=== PATIENT | male | born 1955 | race Caucasian/White ===

== ENCOUNTER 2018-05-30 13:07 | Inpatient (IN) | payer BC, OTHER ==
[~2018-05-30] VITALS: Ht 162.6 cm; Wt 74.6 kg
[2018-05-30] MEDS ORDERED: LASIX20 MG PO (14:58)
[2018-05-30] MEDS ORDERED: LISINOPRIL40 MG PO (14:58)
[2018-05-30] MEDS ORDERED: GLIPIZIDE5 MG PO (14:58)
[2018-05-30] MEDS ORDERED: METFORMIN HCL500 MG PO (14:58)
[2018-05-30] MEDS ORDERED: ECOTRIN81 MG PO (14:58)
[2018-05-30] MEDS ORDERED: AMLODIPINE BESYL5 MG PO (14:58)
[2018-05-30] MEDS ORDERED: MULTI-BETIC TA1 EACH PO (14:58)
[2018-05-30] MEDS ORDERED: VANCOMYCIN 1GM/NS 250 ML 250 ML IV STA (15:09)
[2018-05-30] MEDS ORDERED: PIPER-TAZ 3.375 GM 50 ML IV NR (15:09)
[2018-05-30] MEDS ORDERED: LORAZEPAM 0.5 MG TAB PO ONE (15:30)
[2018-05-30 15:36] LABS: BASOPHILS # (AUTO) 0.1 (0.0-0.1); BASOPHILS % 0.5 % (0.0-1.0); EOSINOPHILS # (AUTO) 0.3 (0.0-0.4); HEMATOCRIT 31.2 % (38.2-49.6); LYMPHOCYTES # (AUTO) 1.9 (1.0-3.2); LYMPHOCYTES % 13.9 % (18.0-39.1); MEAN CORPUSCULAR HEMOGLOBIN 29.8 pg (28-32); MEAN CORPUSCULAR HGB CONC 35.3 g/dL (31-35); MEAN CORPUSCULAR VOLUME 84.6 fL (81-99); MONOCYTES # (AUTO) 1.2 (0.2-0.8); MONOCYTES % 9.3 % (4.4-11.3); NEUTROPHILS # (AUTO) 9.8 (2.1-6.9); NEUTROPHILS % 73.7 % (38.7-80.0); PLATELET COUNT 268 x10e3/uL (140-360); RED BLOOD COUNT 3.69 x10e6/uL (4.3-5.7); RED CELL DISTRIBUTION WIDTH 12.9 % (11.7-14.4)
[2018-05-30 15:41] LABS: ALBUMIN 3.5 g/dL (3.5-5.0); ALBUMIN/GLOBULIN RATIO 0.9 (0.8-2.0); ANION GAP 16.4 mmol/L (8-16); CALCIUM 9.3 mg/dL (8.4-10.2); CREATININE, SERUM 2.09 mg/dL (0.72-1.25); MAGNESIUM 2.3 MG/DL (1.3-2.1)
[2018-05-30 15:47] LABS: POTASSIUM 5.4 mmol/L (3.5-5.1)
--- NOTE | 2018-05-30 15:54 | Diagnostic Imaging Report ---
FOOT LEFT COMPLETE - 3 views HISTORY: Pain COMPARISON: None available. FINDINGS: See impression. IMPRESSION: No acute fracture or dislocation. Chronic appearing destructive changes of the first metatarsophalangeal joint. Second toe swelling with questionable minimal erosive changes of the tip of the distal phalanx. Signed by: Dr. Low Pemberton MD on 05/30/2018 3:51 PM
[2018-05-30] MEDS ORDERED: SODIUM CHLORIDE 0.9% 1000ML 1,000 ML IV SCH (16:00)
[2018-05-30] MEDS ORDERED: INSULIN REGULAR, HUMAN 100 UNIT/1 ML 3ML VIAL IV NR (16:00)
[2018-05-30] MEDS ORDERED: INSULIN REGULAR, HUMAN 100 UNIT/1 ML 3ML VIAL ONE (16:02)
[2018-05-30] MEDS ORDERED: SODIUM CHLORIDE 0.9% 1000ML 1,000 ML ONE (16:02)
[2018-05-30] MEDS ORDERED: ONDANSETRON HCL INJ 2MG/ML 2ML 2 MG/ML VIAL IV PRN (16:15)
[2018-05-30] MEDS ORDERED: DEXTROSE 50% SYRINGE 50 ML IV PRN (16:15)
--- OUTSIDE RECORDS SUMMARY | 2018-05-30 16:19 | XMS REPORT ---
Author [facility] Address Unknown Phone Unavailable Care Team Providers Care Care Associate Name Role Phone Colleen TRAVIS Unavailable Unavailable Problems This patient has no known problems. Allergies, Adverse Reactions, Alerts This patient has no known allergies or adverse reactions. Medications This patient has no known medications. 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 FINDINGS: See impression. IMPRESSION: No acute fracture or dislocation. Chronic appearing destructive changes of the first metatarsophalangeal joint. Second toe swelling with questionable minimal erosive changes of the tip of the distal phalanx. Signed by: Dr. Low Wharton MD on 05/30/2018 3:51 PM Dictated By: LOW WHARTON MD Renee ctronically Signed By: LOW WHARTON MD on 05/30/181550 Transcribed By: JOSE on 05/30/181550 COPY TO: JAKI RAI NP
[2018-05-30] MEDS ORDERED: MORPHINE SULFATE INJ 4 MG/ML INJ 1ML IV PRN (16:30)
[2018-05-30] MEDS: VANCOMYCIN 500MG/NS 0.9% 100ML 100 ML IV SCH (16:44)
[2018-05-30] MEDS: INSULIN REGULAR, HUMAN 100 UNIT/1 ML 3ML VIAL SQ SCH ×2 (16:45→20:52)
--- NOTE | 2018-05-30 18:48 | NUR ---
PATIENT RECEIVED FROM ER PER STRETCHER. ALERT AND VERBALLY RESPONSIVE. ABLE TO TRANSFER SELF FROM STRETCHER TO BED. SKIN WARM AND DRY TO TOUCH, RESPIRATION, EVEN AND UNLABORED. REDNESS AND SWELLING NOTED TO LEFT FOOT AND MORE TO 2ND DIGIT. PATIENT ORIENTED TO SURROUNDINGS. BED IN LOWER POSITION AND LOCKED, CALL LIGHT AT EASY REACH. INSTRUCTED TO CALL FOR ASSISTANCE NEEDED.
[2018-05-30 19:00] VITALS: BP_SYST 101; BP_SYST 161; BP_DIAS 83
--- NOTE | 2018-05-30 19:00 | NUR ---
patient recieved awake, alert, lying quietly in bed. vss. no c/o pain noted. redness/swelling noted to left foot and left second toe with wound noted to left second toe. 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 admit assessment/history obtained. patient instructed to call for assistance when needed.
[2018-05-30 20:00] VITALS: BP 161/83
[2018-05-30] MEDS ORDERED: SODIUM CHLORIDE 0.9% 250ML 250 ML ONE (20:59)
[2018-05-30 21:28] VITALS: BP 161/83
[2018-05-30] MEDS ORDERED: PIPERACILLIN/TAZO 2.25 GM 50 ML IV SCH ×2 (22:00)
[2018-05-31] VITALS (7 sets, daily range): BP systolic 123–157; BP diastolic 74–82
[2018-05-31] MEDS: PIPERACILLIN/TAZO 2.25 GM 50 ML IV SCH ×4 (03:50→21:12)
[2018-05-31] MEDS: VANCOMYCIN 500MG/NS 0.9% 100ML 100 ML IV SCH ×2 (04:30→17:22)
[2018-05-31] MEDS: INSULIN REGULAR, HUMAN 100 UNIT/1 ML 3ML VIAL SQ SCH ×4 (07:30→21:00)
[2018-05-31] MEDS ORDERED: SODIUM CHLORIDE 0.9% 1000ML 1,000 ML IV ONE ×2 (08:00→19:14)
[2018-05-31] MEDS: GLIPIZIDE 5 MG TAB PO SCH (08:04)
[2018-05-31] MEDS: ASPIRIN 81 MG ENTERIC COATED PO SCH (08:04)
[2018-05-31] MEDS: METFORMIN HCL 500 MG TAB PO SCH ×3 (08:04→17:22)
--- NOTE | 2018-05-31 08:47 | History and Physical ---
CHIEF COMPLAINT: Redness and pain in the toe. HISTORY OF PRESENT ILLNESS: The patient reports swelling and pain in the left foot. The pain and swelling is worsen in the 2nd digit of the left toe. He denies any fevers. He does note polyuria and polydipsia. He denies any nausea or vomiting. He has no diarrhea. The patient came to the emergency department. He was discovered to have an elevated white blood cell count along with elevated blood sugars and increased creatinine. The patient was admitted and started on IV antibiotics. He is awaiting an MRI. PAST MEDICAL HISTORY 1. Diabetes mellitus with neuropathy. 2. Hypertension. PAST SURGICAL HISTORY: I and D of a groin infection. SOCIAL HISTORY: The patient quit smoking. He is not actively drinking. He lives in [place]. FAMILY HISTORY: The patient has diabetes and hypertension in the family. REVIEW OF SYSTEMS: The patient is afebrile. He has no headache or sore throat. He has no neck pain. He does not complain of any cough or difficulty breathing. He has no chest pain. There is no abdominal pain. He has no nausea or vomiting. He has no leg swelling. He does complain of pain and tenderness in the left foot. PHYSICAL EXAMINATION VITALS: The blood pressure 151/82 and the saturation is 98%. The pulse is 88. HEENT: Shows no facial swelling or erythema. The oropharynx is normal. The nasal mucosa is normal. LYMPHATIC: Shows no submandibular, cervical or supraclavicular adenopathy. CARDIOVASCULAR: Reveals a regular rate and rhythm with a normal S1 and S2. There are no murmurs or rubs. LUNGS: Auscultation of lungs reveals clear breath sounds bilaterally. There is no wheezing. ABDOMEN: Soft and nontender. There is no rebound or guarding. EXTREMITIES: Show swelling and pain on the dorsal aspect of the left foot, particularly on the 2nd digit. There is signs of sensory neuropathy. NEUROLOGIC: Consistent with neuropathy in the lower extremities. LABORATORY DATA: Blood sugar is 226, but was 453 in the emergency department. The sodium is 134 and the potassium is 5.4. The carbon dioxide is 21 and the BUN to creatinine ratio is 52 to 2.09. IMPRESSION: 1. Osteomyelitis of the toe and dorsal aspect of the foot with sepsis present on admission. 2. Diabetes out of control. 3. Acute kidney injury. 4. Diabetic peripheral neuropathy. 5. Hypertension. PLAN 1. Patient will receive IV fluids along with adjustment of his diabetic insulin regimen. 2. Antibiotics. 3. MRI of the foot. 4. Ultrasound of the kidneys along with urinalysis. 5. Consult nephrology along with infectious disease. Job#: [id number] RI
[2018-05-31] MEDS ORDERED: NON-FORMULARY MEDICATION (Aspirin (Ecotrin) 81 MG) PO SCH (09:00)
[2018-05-31] MEDS ORDERED: NON-FORMULARY MEDICATION (Lisinopril 40 MG) PO SCH (09:00)
[2018-05-31] MEDS ORDERED: LISINOPRIL 20 MG TAB PO SCH (09:00)
[2018-05-31] MEDS: [UNRECOGNIZED DRUG - OTHER] PO SCH (09:00)
--- NOTE | 2018-05-31 09:56 | Diagnostic Imaging Report ---
MRI of the left forefoot without contrast. History: Foot pain. Cellulitis. Osteomyelitis of the left second toe. Infected toe. Diabetes. Decreased range of motion. Technique: Multiplanar multisequence MRI of the left foot without contrast Comparison: Radiographs 05/30/2018 Findings: There is abnormal skin thickening and soft tissue edema at the distal second toe. There is underlying cortical destruction and bone marrow edema involving the distal phalanx of the second toe best seen on sagittal image 16. No well-formed drainable fluid collection/abscess is seen in the region. There is what appears to be a small developing phlegmon on the plantar surface best seen on sagittal image 15. Scattered degenerative changes are seen most pronounced at the first metatarsophalangeal joint with associated joint space loss, subchondral cystic change, peripheral osteophytosis and mild bone marrow edema. No ligamentous or tendon tear is seen. There is mild diffuse muscle atrophy. No ligamentous or tendon tear is seen. The visualized neurovascular bundles are intact. Impression: Abnormal skin thickening and soft tissue edema at the distal second toe. There is underlying cortical destruction and bone marrow edema involving the distal phalanx of the second toe consistent with osteomyelitis. No well-formed drainable fluid collection/abscess is seen in the region. There is what appears to be a developing phlegmon in the region on the plantar surface. Signed by: Dr. Harvey Aguiar M.D. on 05/31/2018 9:53 AM
[2018-05-31] MEDS ORDERED: INFLUENZA VIRUS VAC SPLIT INJ 0.5 ML SYR IM NR (11:00)
--- NOTE | 2018-05-31 11:06 | Diagnostic Imaging Report ---
Renal ultrasound. History: Elevated creatinine Comparison: None Findings: Transverse and longitudinal imaging of the kidneys and bladder. The kidneys are normal in echogenicity and size. Negative for mass, hydronephrosis, or echogenic stone. The right kidney measures 11.2 cm in length and the left kidney measures 10.6 cm in length. No bladder abnormalities identified. Bilateral ureteral jets are seen Impression: Normal renal ultrasound. Signed by: Dr. Harvey Aguiar M.D. on 05/31/2018 11:03 AM
[2018-05-31 11:07] LABS: CLARITY,URINE CLEAR (CLEAR); COLOR,URINE YELLOW (YELLOW)
[2018-05-31 11:08] LABS: BILIRUBIN,URINE NEGATIVE (NEGATIVE); EPITHELIAL CELLS,URINE RARE /LPF; KETONES,URINE NEGATIVE (NEGATIVE); LEUKOCYTE ESTERASE ,URINE NEGATIVE (NEGATIVE); NITRITE,URINE NEGATIVE (NEGATIVE); PROTEIN,URINE DIPSTICK TRACE (NEGATIVE); URINE UROBILINOGEN 0.2 mg/dL (0.2 - 1)
[2018-05-31 11:09] LABS: WBC,URINE (MAN) 0-5 /HPF (0-5)
--- NOTE | 2018-05-31 13:52 | Consultation ---
DATE OF CONSULTATION: May 31, 2018 INFECTIOUS DISEASE CONSULTATION ATTENDING PHYSICIAN: Dr. Nestor Guzman REASON FOR CONSULTATION: Cellulitis. Thank you, Dr. Angela and Dr. Guzman, for asking me to see this patient. HISTORY OF PRESENT ILLNESS: The patient is a 63-year-old man referred for cellulitis. He was admitted through the emergency department with left foot cellulitis. He presented to the emergency department on 05/30/2018 with progressive swelling and redness of the left foot. The patient was picking on a scab at the tip of the left 2nd toe for a few weeks prior. Unfortunately, he developed an ulcer, which he managed at home with Neosporin and hydrogen peroxide. Subsequently he noted progressive swelling and redness a day prior to presentation. He denies fever, chills and foot pain. In the emergency department, he was noted to have temperature 97.7 degrees Fahrenheit, pulse rate 100, respiratory rate 18, blood pressure 176/92, and oxygen saturation 99% on room air. Laboratory studies showed blood glucose 453. X-ray of the left foot showed chronic-appearing destructive changes of the 1st metatarsophalangeal joint and 2nd toe swelling with questionable minimal erosive changes at the tip of the distal phalanx. PAST MEDICAL HISTORY: Diabetes mellitus type 2, hypertension. PAST SURGICAL HISTORY: Incision and drainage of groin abscess. ALLERGIES: NO KNOWN DRUG ALLERGIES. MEDICATIONS: See MAR. The current antibiotics are Zosyn 2.25 grams IV piggyback q.6 h. and vancomycin 500 mg IV piggyback q.24 h. IMMUNIZATIONS: He has not received influenza vaccine this season. He received pneumococcal vaccination in 2018. Also, he received tetanus-diphtheria vaccine in 2018. FAMILY HISTORY: Significant for diabetes mellitus and hypertension. SOCIAL HISTORY: He never smoked. He quit drinking alcohol 5 to 6 years ago. No recreational drug use. REVIEW OF SYSTEMS: As per history of present illness. He denies fever, chills, cough, shortness breath, nausea, vomiting, diarrhea, dysuria and abdominal pain. The wound has started draining purulent material. PHYSICAL EXAMINATION GENERAL: No acute distress. VITALS: T-max 98.6, pulse rate 88, respiratory rate 20, blood pressure 151/82. Weight 163 pounds. HEENT: Normocephalic. There is no icterus or injection of conjunctivae. There is no ear or nasal discharge. Moist oral mucosa. No pharyngeal erythema or exudate. NECK: Supple. No meningismus. LUNGS: Clear to auscultation bilaterally. HEART: Normal S1 and S2. Regular. ABDOMEN: Soft and nontender. EXTREMITIES: There is edema of the left 2nd toe with an ulcer at the tip of the left 2nd toe draining scant purulent material. There is redness of the left foot as well as edema and warmth but no tenderness. The dorsalis pedis and posterior tibial pulses are palpable in both feet. There is no edema, clubbing or cyanosis of the rest of the extremities. SKIN: As per extremities. SEAL SKINNER: Awake, alert and oriented to person, place and time. There is decreased sensation to monofilament test of the feet. Nonfocal. LABORATORY AND DIAGNOSTICS: 05/30/2018 WBC 13,290, hemoglobin 11, platelets 268,000, neutrophils 73.7, lymphocytes 13.9, monocytes 9.3, eosinophils 2, basophils 0.5. BUN 52, creatinine 2.09. Blood glucose 135. Blood culture collected in the emergency room is pending. The left 2nd toe drainage culture is also pending. Left foot MRI showed abnormal skin thickening and soft-tissue edema at the distal 2nd toe and underlying cortical destruction and bone marrow edema involving the distal phalanx of the 2nd toe consistent with osteomyelitis. IMPRESSION/DIAGNOSES 1. Left foot cellulitis complicating diabetic foot ulcer with features consistent with osteomyelitis of the distal phalanx of the 2nd digit, present on admission. 2. Diabetes mellitus, type 2, with peripheral neuropathy, uncontrolled. 3. Acute kidney injury. PLAN 1. Await culture results and monitor vancomycin level closely. Await arterial Doppler ultrasound report. 2. Continue current antibiotics and administer influenza vaccination (the patient agrees). 3. Await podiatry and nephrology consults. Job#: [id number] MIGUELANGEL MCKEON
[2018-05-31] MEDS ORDERED: AMLODIPINE BESYLATE 5 MG TAB PO SCH (17:00)
--- NOTE | 2018-05-31 17:35 | NUR ---
WOUND CARE CONSULTATION - INITIAL EVALUATION Patient admitted for swelling and redness of left foot 2nd toe with DFU. Dx with cellulitis and OM of Left foot 2nd Toe, HTN, MARY, Hyperglycemia. HX: DM, Neuropathy, HTN. LABS: WBC 13.29 HGB11 HCT31.2 NEUT%73.7 TFN317 ALB3.5 IMAGING: -X Ray - 2nd Toe Joint Swelling. -MRI of Left Foot - Abnormal skin thickening and soft tissue edema at the distal second toe. There is underlying cortical destruction and bone marrow edema involving the distal phalanx of the second toe consistent with osteomyelitis WC Consulted for Left Foot Wound @ 2nd Toe - Patient out of shower walking barefooted to bed. - Patient in good spirits with spouse at bedside. - Noted ulceration at tip of 2nd toe with toe double the size of right foot 2nd digit. - Tip of toe appears friable/ dark red and upon expressing, cloudy milky white pus comes out. - Nail Bed came off upon cleansing toe with NSS and 4x4 gauze giving the toe a purple translucent appearance. - Redness from toe continues to dorsal aspect of foot. - Mild edema noted. Pedal pulses palpable bilaterally. - Wound previously cultured in ER - preliminary results in chart. Pending Final Results with Sensitivities. - Patient on IV ABX. - Left foot wound probes to bone. - Toro Score 22 - Conservative PUP Protocol IMPRESSION: 1. Left Foot 2nd Toe - DFU grade 3 - OM+ RECOMMENDATION: 1. Podiatry Consult Recommended for evaluation of Debridement of Bone -vs- Toe Amputation. 2. Left Foot 2nd Toe - DFU grade 3 - - Cleanse wound with Normal Saline and x4 gauze Daily - Apply Silver Alginate ( Maxsorb Ag+) and Wrap with gauze Daily. 3. Keep Left Foot Dry. 4. Conservative PUP. Thank you for Consulting with Wound Care. Addendum: 05/31/18 at 1752 by Terrell Michelle RN Amended: Links added.
--- NOTE | 2018-05-31 19:00 | NUR ---
Received change of shift report from AM nurse. Walking round completed.
[2018-05-31 20:35] LABS: CREATININE,URINE RANDOM 64.36 mg/dL (63-166); SODIUM,URINE 111 mmol/L; TOTAL PROTEIN, URINE 19.7 mg/dL (1-14)
[2018-05-31 20:56] LABS: EOSINOPHIL SMEAR,URINE NONE SEEN (NONE SEEN)
[2018-05-31] MEDS ORDERED: ZOLPIDEM TARTRATE 10 MG TAB PO PRN (21:00)
--- NOTE | 2018-05-31 23:09 | Consultation ---
DATE OF CONSULTATION: May 31, 2018 REASON FOR CONSULTATION: Acute kidney injury. HISTORY OF PRESENT ILLNESS: The patient is a very pleasant 63-year-old male with past medical history of hypertension and diabetes type 2, who was admitted with left toe infection. It was started as a blister. The patient says about 2 weeks ago, he had a small blister on the left 2nd toe and then it developed an ulcer and it started getting red and painful. The patient denies having any fever or chills, but he was taking ibuprofen and Aleve because the foot was hurting. He came to the emergency room and was admitted for cellulitis with elevated white count. MRI showed left distal swelling of the second toe osteomyelitis. The patient was also found to be in acute kidney injury with creatinine of 2.09. The patient's last creatinine in the system from October 2007 was 0.8. The patient never had any history of any kidney disease, but patient says he has pain in his foot which he thinks is because of his diabetes and takes Aleve or ibuprofen when he needs it intermittently. Preliminary wound culture growing gram-positive cocci. Blood culture is negative. Seen by infectious disease. The patient got vancomycin IV daily 500 mg and Zosyn 2.25 g IV q.6 h. Denies having any nausea, vomiting, or diarrhea. PAST MEDICAL HISTORY: As above. PAST SURGICAL HISTORY: Incision and drainage of growing abscess. ALLERGIES: NO KNOWN DRUG ALLERGIES. FAMILY HISTORY: Positive for diabetes and hypertension. SOCIAL HISTORY: He never smoked. Quit drinking alcohol 5 to 6 years ago. No recreational drug abuse. 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 MEDICATIONS 1. Amlodipine 5 mg p.o. daily. 2. Zosyn 2.25 g IV q.6 h. 3. Metformin 500 mg t.i.d. 4. Vancomycin 500 mg IV daily. 5. Lisinopril 40 mg p.o. daily. 6. Glipizide 10 mg p.o. daily. REVIEW OF SYSTEMS GENERAL: No fatigue, no fever, no chills. HEENT: No headache, no blurred vision. NECK: No dysphagia. CARDIOVASCULAR: No chest pain, no PND, no orthopnea. RESPIRATORY: No shortness of breath or dyspnea on exertion. No cough or hemoptysis. GI: No nausea, vomiting, diarrhea, constipation, abdominal pain, hematemesis, or melena. MUSCULOSKELETAL: No ankle swelling. NEUROLOGICAL: No numbness, weakness, or tingling. PHYSICAL EXAMINATION VITAL SIGNS: Blood pressure 155/79, pulse of 82, respirations 20, temperature 98.9, 98% on room air. GENERAL: Awake, alert, and oriented times 3, not in apparent distress. HEENT: PERRLA. Extraocular muscles intact. NECK: No elevated JVD. HEART: S1 and S2. LUNGS: Clear to auscultation bilaterally. ABDOMEN: Soft. Bowel sounds positive. EXTREMITIES: Left lower extremity edema. NEUROLOGICAL: No focal deficits. LABS: Sodium 134, potassium 5.4, chloride 100, CO2 of 21, BUN 62, creatinine 2.09, glucose 453. Calcium 8.1. AST/ALT within normal range. Metformin 2.3. UA: 2+ glucose and protein trace. White count 13.2, hemoglobin 11, platelet count of 268,000. Renal ultrasound: Right kidney 11.2 and left kidney is 10.6. No bladder abnormalities. MRI of the foot: As per HPI. ASSESSMENT AND PLAN 1. Acute kidney injury: Baseline creatinine is unknown. The patient never had any issues with kidneys in the past. Could be acute tubular necrosis secondary to infection. Will hold Lasix, lisinopril and metformin for now. Monitor the vancomycin level closely. Check urine lytes. Avoid all nephrotoxic medications. Repeat the lab in the morning. 2. Diabetes type 2 was uncontrolled. We will hold Metformin for now as with acute kidney injury. 3. Hypertension: Reasonable controlled. Will increase amlodipine to 10 mg p.o. daily. Hold lisinopril. Will also hold Lasix. 4. Left foot osteomyelitis: On Zosyn and vancomycin. ID is following. Will monitor vancomycin level very closely. I want to thank, Dr. Guzman, for the consult. I discussed with the and daughter at bedside and answered all their questions. Job#: [id number]
--- NOTE | 2018-05-31 23:45 | NUR ---
Patient AAOx3. In bed in supine position.Dr on the floor writing orders. Patient denies pain or discomfort at this time.Orders written for urine test. Called lab and previous urine can be use for new order. Dr order completed. Continue monitor. Dressing to foot dry and intact.
[2018-06-01] VITALS (8 sets, daily range): BP systolic 142–167; BP diastolic 66–94
[2018-06-01] MEDS: PIPERACILLIN/TAZO 2.25 GM 50 ML IV SCH ×4 (04:00→22:53)
--- NOTE | 2018-06-01 04:00 | NUR ---
Patient resting quitly with no c/o at this time. Continue monitor.
[2018-06-01 05:45] LABS: BASOPHILS # (AUTO) 0.1 (0.0-0.1); BASOPHILS % 0.7 % (0.0-1.0); EOSINOPHILS # (AUTO) 0.3 (0.0-0.4); EOSINOPHILS % 3.2 % (0.0-6.0); HEMATOCRIT 30.9 % (38.2-49.6); HEMOGLOBIN 9.7 g/dL (14.0-18.0); LYMPHOCYTES % 19.6 % (18.0-39.1); MEAN CORPUSCULAR HEMOGLOBIN 27.6 pg (28-32); MEAN CORPUSCULAR HGB CONC 31.4 g/dL (31-35); MONOCYTES # (AUTO) 1.1 (0.2-0.8); MONOCYTES % 10.9 % (4.4-11.3); NEUTROPHILS # (AUTO) 6.7 (2.1-6.9); NEUTROPHILS % 65.2 % (38.7-80.0); PLATELET COUNT 242 x10e3/uL (140-360); RED BLOOD COUNT 3.51 x10e6/uL (4.3-5.7); RED CELL DISTRIBUTION WIDTH 12.7 % (11.7-14.4)
[2018-06-01 06:05] LABS: ALBUMIN 2.8 g/dL (3.5-5.0); ALBUMIN/GLOBULIN RATIO 0.8 (0.8-2.0); ANION GAP 13.7 mmol/L (8-16); CALCIUM 8.4 mg/dL (8.4-10.2); CREATININE, SERUM 1.59 mg/dL (0.72-1.25); POTASSIUM 4.7 mmol/L (3.5-5.1)
[2018-06-01] MEDS ORDERED: ACETAMINOPHEN 325 MG TAB PO PRN (06:30)
[2018-06-01] MEDS ORDERED: HYDRALAZINE HCL 20 MG/ML VIAL IV PRN (06:30)
[2018-06-01] MEDS: INSULIN REGULAR, HUMAN 100 UNIT/1 ML 3ML VIAL SQ SCH ×4 (07:30→20:51)
[2018-06-01] MEDS: FAMOTIDINE 20 MG/2 ML VIAL IV SCH ×2 (08:31→17:13)
[2018-06-01] MEDS: ASPIRIN 81 MG ENTERIC COATED PO SCH (08:31)
[2018-06-01] MEDS: GLIPIZIDE 5 MG TAB PO SCH (08:31)
[2018-06-01] MEDS: [UNRECOGNIZED DRUG - OTHER] PO SCH (08:31)
[2018-06-01] MEDS ORDERED: FUROSEMIDE 20 MG TAB PO SCH (09:00)
[2018-06-01] MEDS: COLLAGENASE OINTMENT 30 GM TUBE TP SCH (10:15)
--- NOTE | 2018-06-01 10:48 | Consultation ---
DATE OF CONSULTATION: June 01, 2018 PODIATRY CONSULTATION REASON FOR CONSULTATION: Possible osteomyelitis with grade 3/4 ulceration of 2nd toe left foot. HISTORY OF PRESENT ILLNESS: This is a pleasant, 63-year-old white male with a history of noninsulin-dependent diabetes a25-sltr years and hypertension, who noticed his toe having a lesion to the distal aspect for the last 2 to 3 weeks. He has been treating it with Neosporin. The patient is denying history of fever, chills, nausea or vomiting. PAST MEDICAL HISTORY: Remarkable for noninsulin-dependent diabetes and hypertension. SURGICAL HISTORY: Patient denies. CURRENT MEDICATIONS: Note list in the chart including IV vancomycin and Zosyn. SOCIAL HISTORY: Does not do any type of recreational drug use, smoke or drink. Lives with his . 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 FAMILY HISTORY: Remarkable for diabetes. REVIEW OF SYSTEMS CARDIAC: Denies any palpitations or arrhythmias. RESPIRATORY: Denies any shortness of breath or productive cough. GASTROINTESTINAL: Denies any diarrhea or constipation. GENITOURINARY: Denies any hematuria or problems voiding. VITALS: Afebrile. Pulse 83, respirations 18, blood pressure 152/92, oxygen saturation 98%. LABS: White blood cell count dropped from 13.2 to 10.2. Hemoglobin 9.7, hematocrit 30.9, with platelet count of 242. PODIATRIC PHYSICAL EXAMINATION VASCULATURE: Pedal pulses to both the dorsalis pedis and posterior tibial arteries are palpable but diminished. CFT to all toes less than 5 seconds. NEUROLOGICAL: Examination reveals complete loss of protective sensation when utilizing the [place] 5.07 monofilament wire. MUSCULOSKELETAL: Examination shows muscle mass to be asymmetrical. Some swelling is noted to the left lower extremity when compared to the right. Muscle strength is 4/5 to 5/5 to muscle groups. DERMATOLOGICAL: A grade 3, possible 4, ulceration to the distal aspect of the 2nd toe, left foot, measuring 1 to 1.5 cm in diameter, tracking down to bone. MRI was positive for bony destruction to the distal phalanx. ASSESSMENT: Grade 3/4 ulceration with osteomyelitis, 2nd toe, left foot. PLAN: We will continue local wound care. Will start Santyl followed by diluted wet to dry. Ulceration will be debrided tomorrow. The patient understands we will try to salvage the toe and treat him conservatively with serial debridements and IV antibiotics. If not responsive, he may end up needing a partial amputation of the toe with a flap closure. GUILLERMINA SWENSON DPM Job#: [id number]
--- NOTE | 2018-06-01 15:34 | NUR ---
WOUND CARE CONSULTATION - FOLLOW UP Patient admitted for swelling and redness of left foot 2nd toe with DFU. Dx with cellulitis and OM of Left foot 2nd Toe, HTN, MARY, Hyperglycemia. HX: DM, Neuropathy, HTN. IMAGING: -X Ray - 2nd Toe Joint Swelling. -MRI of Left Foot - Abnormal skin thickening and soft tissue edema at the distal second toe. There is underlying cortical destruction and bone marrow edema involving the distal phalanx of the second toe consistent with osteomyelitis - Patient in good spirits resting in bed. - Redness from 2nd Toe to dorsal aspect of foot improving. - Wound previously cultured in ER - preliminary results in chart. Pending Final Results with Sensitivities. - Patient on IV ABX. - Left foot 2nd Toe wound probing to bone. - Toro Score 22 - Conservative PUP Protocol in place. - Dr. Dax Gaviria on board for directing wound care. - Current tx plan: Santyl WTD Daily - Planned sharps debridement for 06/02/18. IMPRESSION: 1. Left Foot 2nd Toe - DFU grade 3 - OM+ - IMPROVING RECOMMENDATION: 2. Left Foot 2nd Toe - DFU grade 3 - - Continue Santyl with NS moistened gauze Dressing as prescribed by Dr. Everette Elmore 3. Keep Left Foot Dry. 4. Conservative PUP. Will Follow up as needed. Addendum: 06/01/18 at 1544 by Terrell Michelle RN Amended: Links added.
--- NOTE | 2018-06-01 15:40 | NUR ---
Nutrition Screen Note RD Recommendation for Physician: -Continue ADA diet as ordered Plan of Care: RD following, monitoring for tolerance and adequacy Nutrition reason for involvement: Nutrition Risk Trigger MST Primary Diagnose(s): Grade 3/4 ulceration with osteomyelitis, 2nd toe, left foot. PMH: DM with neuropathy, HTN Ht: 64in Wt: 163.44lb BMI: 28.1kg/m2 IBW: 130lb RD Assessment: (06/01) Chart reviewed. Labs and meds reviewed. 53yo M, who is admitted for redness and pain in the toe. Wound care on the case. Currently on Lasix and insulin. Visited pt in room who denied significant wt loss, denied decrease in appetite CRATE TIER. Pt denied chewing/swallowing problems and nausea/vomiting. Current diet is appropriate. Will cont to monitor. Please consult as needed. Current Diet: ADA diet Malnutrition Evaluation (06/01/18) The patient does not meet criteria for a specified degree of malnutrition at this time. Will re-evaluate at follow-up as appropriate. Diet Education Needs Assessment: Diet education not indicated. Nutrition Care Level: low Signed: Bonnie Ruiz, MS, RD, LD
--- NOTE | 2018-06-01 16:24 | NUR ---
Met with pt earlier today and discussed order for LTAC. He agreed and signed choice for [facility]. Renee Burton, liaison was notified and eval is in progress. Intiated MOT and placed on chart at desk.
[2018-06-01] MEDS ORDERED: AMLODIPINE BESYLATE 5 MG TAB PO SCH (17:00)
[2018-06-01] MEDS: AMLODIPINE BESYLATE 10 MG TAB PO SCH (17:14)
[2018-06-01] MEDS: VANCOMYCIN 500MG/NS 0.9% 100ML 100 ML IV SCH (17:14)
[2018-06-02] VITALS (7 sets, daily range): BP systolic 99–147; BP diastolic 57–84
[2018-06-02 03:46] LABS: BASOPHILS # (AUTO) 0.1 (0.0-0.1); BASOPHILS % 0.8 % (0.0-1.0); EOSINOPHILS # (AUTO) 0.4 (0.0-0.4); EOSINOPHILS % 4.3 % (0.0-6.0); HEMATOCRIT 31.3 % (38.2-49.6); HEMOGLOBIN 10.2 g/dL (14.0-18.0); LYMPHOCYTES # (AUTO) 1.8 (1.0-3.2); LYMPHOCYTES % 18.5 % (18.0-39.1); MEAN CORPUSCULAR HEMOGLOBIN 27.9 pg (28-32); MEAN CORPUSCULAR HGB CONC 32.6 g/dL (31-35); MEAN CORPUSCULAR VOLUME 85.5 fL (81-99); MONOCYTES % 10.4 % (4.4-11.3); NEUTROPHILS # (AUTO) 6.4 (2.1-6.9); NEUTROPHILS % 65.7 % (38.7-80.0); PLATELET COUNT 264 x10e3/uL (140-360); RED BLOOD COUNT 3.66 x10e6/uL (4.3-5.7); RED CELL DISTRIBUTION WIDTH 12.5 % (11.7-14.4)
[2018-06-02 04:06] LABS: ANION GAP 14.3 mmol/L (8-16); CALCIUM 8.9 mg/dL (8.4-10.2); CREATININE, SERUM 1.71 mg/dL (0.72-1.25); MAGNESIUM 1.6 MG/DL (1.3-2.1); POTASSIUM 4.3 mmol/L (3.5-5.1)
[2018-06-02] MEDS: PIPERACILLIN/TAZO 2.25 GM 50 ML IV SCH (04:58)
[2018-06-02 05:58] LABS: ERYTHROCYTE SEDIMENTATION RATE 99 mm/hr (0-13)
--- NOTE | 2018-06-02 07:05 | NUR ---
rounded with awake overnight monitor nurse, patient sitting at bedside, aware of change. Patient in no distress and call rankin within reach
[2018-06-02] MEDS: INSULIN REGULAR, HUMAN 100 UNIT/1 ML 3ML VIAL SQ SCH ×3 (07:30→16:45)
--- NOTE | 2018-06-02 08:01 | Progress Note ---
DATE: June 02, 2018 SUBJECTIVE: Patient seen at bedside. Denying any history of fever, chills, nausea, or vomiting. OBJECTIVE VITALS: Afebrile, pulse rate 75, respirations 18, blood pressure 139/74, O2 saturation 97%. EXTREMITIES: Has a grade 4 ulcer of distal aspect, 2nd toe, left foot tracking down to bone with periwound cellulitis present. Some foul smell. Has a white blood cell count of 9.8. ASSESSMENT: Grade 4 ulcer with osteomyelitis 2nd toe, left foot. PLAN: Sharp excisional debridement was carried down to bone. Devitalized tissue sharply excised. Bone was scraped via sharp dissection. Deep cultures were taken for aerobic and anaerobic growth. Santyl followed by diluted wet-to-dry Betadine was applied to the toe. Will continue to treat conservatively. Patient may need a partial amputation of the toe if not responsive. Job#: [id number] DREW
[2018-06-02] MEDS: COLLAGENASE OINTMENT 30 GM TUBE TP SCH (08:11)
[2018-06-02] MEDS: FAMOTIDINE 20 MG/2 ML VIAL IV SCH ×2 (08:11→16:45)
[2018-06-02] MEDS: GLIPIZIDE 5 MG TAB PO SCH (08:11)
[2018-06-02] MEDS: ASPIRIN 81 MG ENTERIC COATED PO SCH (08:11)
[2018-06-02] MEDS: [UNRECOGNIZED DRUG - OTHER] PO SCH (08:41)
[2018-06-02] MEDS ORDERED: CEFTRIAXONE SOD 1 GM/NS 50 ML 50 ML IV SCH (09:30)
[2018-06-02] MEDS ORDERED: PIPERACILLIN/TAZO 2.25 GM 50 ML IV SCH (12:00)
[2018-06-02] MEDS ORDERED: NORVASC10 MG PO (15:21)
[2018-06-02] MEDS ORDERED: Collagenase TP (15:21)
--- NOTE | 2018-06-02 15:47 | Discharge Summary ---
ADMISSION DIAGNOSES 1. Osteomyelitis of the left 2nd toe with sepsis. 2. Diabetes. 3. Acute kidney injury. 4. Diabetic peripheral neuropathy. 5. Hypertension. DISCHARGE DIAGNOSES 1. Osteomyelitis of the left 2nd toe with sepsis. 2. Diabetes. 3. Acute kidney injury. 4. Diabetic peripheral neuropathy. 5. Hypertension. 6. Hyponatremia. 7. Hyperkalemia. HISTORY: Patient has a history of diabetes, neuropathy, hypertension. SURGICAL HISTORY: I&D of a groin infection. SOCIAL HISTORY: Patient quit smoking. He does not drink and denies illicit drug use. HOSPITAL COURSE: A 63-year-old male reports swelling and pain in the left foot. The pain and swelling is worse on the 2nd digit. He denies fever, polyuria, polydipsia, nausea, vomiting, diarrhea. On admission, patient had a foot x-ray that showed no acute fracture or dislocation, chronic appearing destructive changes of the left 1st metatarsal joint, 2nd toe swelling with questionable erosive changes of the tip of the distal phalanx. Renal ultrasound was normal. MRI of the left foot showed abnormal skin thickening and soft tissue edema at the distal 2nd toe. There is underlying cortical destruction and bone marrow edema involving the distal phalanx of the 2nd toe consistent with osteomyelitis. No well-formed drainable abscess collection. Patient was started on vancomycin and Zosyn on admission. ID was consulted. Podiatry was consulted. Nephrology was consulted. Patient's renal labs improved with fluid. Patient will transfer to [facility] [place] for long-term antibiotics. Patient had a bedside debridement on 06/02/18 by podiatry. Patient understands discharge instructions and agrees to plan. Vital signs stable. Patient afebrile. Dictated by Sabiha Rosado NP. NATHANIEL AVELAR MD Job#: [id number] FERMIN
--- NOTE | 2018-06-02 16:20 | NUR ---
report given to [facility] for patient transfer. Patient alert and oriented and verbalized understanding for transfer.
[2018-06-02] MEDS: AMLODIPINE BESYLATE 10 MG TAB PO SCH (16:45)
[2018-06-02] MEDS ORDERED: VANCOMYCIN 1GM/NS 250 ML 250 ML IV SCH (17:30)
--- NOTE | 2018-06-02 18:45 | NUR ---
patient left floor alert and oriented on stretcher to [facility] in stable condition
== END 2018-06-02 18:47 | DRG 853 ==
LOC: ER 13:07 → ERHOLD 16:17 → MED/SURG3 18:40
PROVIDERS: ADMIT Internal Medicine; ATTEND Internal Medicine
PROC: 0JBR0ZZ Excision of Left Foot Subcutaneous Tissue and Fascia, Open Approach (ICD-10-PCS; principal; 2018-06-02)
PROC: 0QBR0ZZ Excision of Left Toe Phalanx, Open Approach (ICD-10-PCS; 2018-06-02)
DX: A41.9 Sepsis, unspecified organism (principal); N17.0 Acute kidney failure with tubular necrosis; M86.8X7 Other osteomyelitis, ankle and foot; E87.1 Hypo-osmolality and hyponatremia; E11.69 Type 2 diabetes mellitus with other specified complication; E11.42 Type 2 diabetes mellitus with diabetic polyneuropathy; M17.9 Osteoarthritis of knee, unspecified; E11.65 Type 2 diabetes mellitus with hyperglycemia; E87.5 Hyperkalemia; L03.032 Cellulitis of left toe; I10 Essential (primary) hypertension; Z87.891 Personal history of nicotine dependence; Z83.3 Family history of diabetes mellitus; Z82.49 Family history of ischemic heart disease and other diseases of the circulatory system; Z79.4 Long term (current) use of insulin
CPT/HCPCS: 36415; 76770; 80048; 80053; 81001; 81015; 82570; 82948; 83036; 83605; 83735; 84132; 84156; 84300; 85025; 85651; 86140; 87040; 87071; 87186; 87205; 93926; 96361; 99284; J2543; J3370; J7030; J7050

== ENCOUNTER → 2019-02-21 | Day surgery (SDC) | payer BC ==
[2019-02-14 14:37] LABS: BASOPHILS # (AUTO) 0.1 (0.0-0.1); BASOPHILS % 0.7 % (0.0-1.0); EOSINOPHILS # (AUTO) 0.2 (0.0-0.4); EOSINOPHILS % 2.1 % (0.0-6.0); HEMATOCRIT 35.8 % (38.2-49.6); HEMOGLOBIN 11.9 g/dL (14.0-18.0); LYMPHOCYTES # (AUTO) 2.6 (1.0-3.2); LYMPHOCYTES % 25.1 % (18.0-39.1); MEAN CORPUSCULAR HEMOGLOBIN 28.7 pg (28-32); MEAN CORPUSCULAR HGB CONC 33.2 g/dL (31-35); MEAN CORPUSCULAR VOLUME 86.3 fL (81-99); MONOCYTES # (AUTO) 0.8 (0.2-0.8); MONOCYTES % 8.2 % (4.4-11.3); NEUTROPHILS # (AUTO) 6.5 (2.1-6.9); NEUTROPHILS % 63.5 % (38.7-80.0); PLATELET COUNT 217 x10e3/uL (140-360); RED BLOOD COUNT 4.15 x10e6/uL (4.3-5.7); RED CELL DISTRIBUTION WIDTH 13.2 % (11.7-14.4)
[2019-02-14 14:54] LABS: ANION GAP 13.8 mmol/L (8-16); CALCIUM 8.9 mg/dL (8.4-10.2); CREATININE, SERUM 1.81 mg/dL (0.72-1.25); POTASSIUM 4.8 mmol/L (3.5-5.1)
--- NOTE | 2019-02-14 16:13 | Diagnostic Imaging Report ---
Chest, 2 views, 02/14/2019. History: Preop, foot surgery. Comparison: None available. Findings: The cardiomediastinal silhouette and pulmonary vasculature are within normal limits. The lungs are clear without evidence of consolidation or pleural effusion. Degenerative changes are present in the thoracic spine. There are no acute osseous or soft tissue abnormalities. Impression: No acute cardiopulmonary abnormality. Signed by: Baldo Mejia on 02/14/2019 4:10 PM
[~2019-02-21] MED LIST: AMLODIPINE BESYL5 MG PO; ASCORBIC ACID500 MG PO; BETAMETHASONE DISODIUM PHOS 6 MG/ML VIAL ONE; BUPIVACAINE HCL 0.5% INJ 30 ML VIAL INJ ONE; BYSTOLIC10 MG PO; CEFAZOLIN SOD 1 GM/NS 50ML 100 ML IV ONE; Collagenase TP; DEXAMETHASONE SOD PHOS INJ 4 MG/ML VIAL ONE; ECOTRIN81 MG PO; FENTANYL CITRATE/PF 100MCG/2 ML INJ ONE; GLIPIZIDE5 MG PO; IRON PO; KETOROLAC TROMETHAMINE 30 MG/ML VIAL ONE; LASIX20 MG PO; LIDOCAINE HCL 1% LOCAL INJ 20 ML VIAL ONE; LIDOCAINE HCL 2% LOCAL INJ 5 ML SDV VIAL INJ ONE; LISINOPRIL40 MG PO; METFORMIN HCL500 MG PO; MIDAZOLAM HCL 2 MG/2 ML VIAL ONE; MULTI-BETIC TA1 EACH PO; MUPIROCIN 2% OINT 22 GM TUBE ONE; NORVASC10 MG PO; ONDANSETRON HCL INJ 2MG/ML 2ML 2 MG/ML VIAL ONE; PROPOFOL IV EMULSION 10 MG/ML 20 ML VIAL ONE; SEVOFLURANE INHAL SOLN 250 ML PEN BTL ONE; SODIUM BICARB PO; TRADJENTA5 MG PO; VITAMIN B-121000 MCG PO
--- NOTE | 2019-02-21 09:24 | Diagnostic Imaging Report ---
EXAMINATION: FOOT LEFT AP LAT INDICATION: Postoperative COMPARISON: Left foot radiographs of 05/30/2018, left foot MRI of 05/23/2018 FINDINGS: Portable AP and lateral images of the left foot demonstrate immediate postoperative findings of left first ray osteotomy and K wire fixation spanning the interphalangeal and MTP joints. K wire fixation also involves the second through fourth digits spanning the DIP PIP and MTP joints. Alignment is near-anatomic. No unexpected fractures. Degenerative changes about the midfoot. Small plantar calcaneal spur. Overlying splint material obscures fine bony detail. IMPRESSION: Postoperative left foot changes as above. Signed by: Pio Hopkins MD on 02/21/2019 9:21 AM
[2019-02-21 09:38] VITALS: BP 189/90
--- NOTE | 2019-02-21 13:28 | Operative Report ---
DATE OF PROCEDURE: 02/21/2019 SURGEON: Dax Gaviria DPM PREOPERATIVE DIAGNOSES: 1. Hallux limitus/hallux valgus deformity, left foot. 2. Painful contracted hammertoes, 2nd digit, left foot. 3. Painful contracted hammertoes, 3rd digit, left foot. 4. Painful contracted hammertoes, 4th digit, left foot. 5. Painful contracted hammertoes, 5th digit, left foot. POSTOPERATIVE DIAGNOSES: Confirmed. OPERATIVE PROCEDURES: 1. Brown bunionectomy with K-wire fixation, left foot. 2. Arthroplasty of 2nd digit with K-wire fixation, left foot. 3. Arthroplasty of 3rd digit with K-wire fixation, left foot. 4. Arthroplasty of 4th digit with K-wire fixation, left foot. 5. Arthroplasty of 5th digit, left foot. 6. Intraoperative use of fluoroscopy. 7. Trigger point shot of cortisone. 8. Application of posterior splint. ANESTHESIA: General. HEMOSTASIS: Pneumatic thigh tourniquet at 350 mmHg. PROCEDURE IN DETAIL: The patient was taken into the operating room and placed on the operating table in supine position. Following induction of general anesthesia by the anesthesiologist, Webril wraps were placed on the patient's left thigh followed by application of left thigh tourniquet. The left lower extremity was then prepped and draped in the usual aseptic manner and following procedures were then performed. Procedure #1: Brown bunionectomy, left foot. Attention was directed to the dorsomedial aspect of the left 1st metatarsophalangeal joint, where a 6 cm linear incision was performed. 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 Via the use of an oscillating saw, 1 cm from the base of the proximal phalanx was excised from the operation site in toto to create a joint space to allow for possible range of motion to the 1st MPJ. All rough and bony edges were rasped smooth. Utilizing an oscillating saw, the medial aspect of the 1st metatarsal head was also resected and all rough and bony edges were rasped smooth via the use of a rotating bur. Procedures #2 through #5: Arthroplasty of 2nd through 5th with K-wire fixation 2nd through 4th. Attention was then directed to the dorsal aspect of the above-mentioned toes around the proximal interphalangeal joint, where a 3 cm linear incision was performed. Incision was deepened down to the joint capsule. Transverse capsulotomy was then performed exposing the head of the proximal phalanx. Via the use of an oscillating saw, head of the proximal phalanxes were excised from the operation site in toto. All rough and bony edges were rasped smooth. The 2nd through 4th toes was still noted to be contracted, so a 0.045 K-wire was introduced across the metatarsophalangeal joints to achieve proper anatomic reduction after properly and copiously flushing the area with saline. Procedure #6: Intraoperative use of fluoroscopy was then used to make sure proper alignment and fixation was achieved. Closure was then obtained utilizing 3-0 Vicryl, 4-0 Vicryl, and 4-0 nylon for capsule, subcutaneous tissue, and skin respectively. Procedure #7: Trigger point shot of cortisone was then given to the 1st and 4th interspace for the inflammation. Then, approximately 15 mL of 0.5% plain Marcaine plus 5 mL of 1% Xylocaine plain were then used to achieve local anesthesia of above-mentioned surgical area. Sterile dressing was applied. Upon release of the thigh tourniquet, blood hyperemia was noted immediate to all digits of the patient's left foot. Procedure #8: Application of posterior splint. A properly placed posterior splint was then applied keeping the foot at 90 degrees with respect to the leg to try for any type of postop complications. The patient was then transferred from the OR to recovery room with vital signs stable and neurovascular status intact. No intraoperative complications were encountered. Blood loss from the surgery was minimal. The patient is to remain nonweightbearing with the aid of crutches, keep his foot elevated and is to apply an ice pack to the ankle joint area. CORNELIUS Thornton/MANUEL /[id number]
== END | disposition home or self-care (01) ==
LOC: OR 05:00
PROVIDERS: ATTEND Podiatrist Foot Surgery
DX: M20.12 Hallux valgus (acquired), left foot (principal); M20.42 Other hammer toe(s) (acquired), left foot; M79.672 Pain in left foot; Z01.810 Encounter for preprocedural cardiovascular examination; Z01.812 Encounter for preprocedural laboratory examination; Z01.811 Encounter for preprocedural respiratory examination; E11.22 Type 2 diabetes mellitus with diabetic chronic kidney disease; I12.9 Hypertensive chronic kidney disease with stage 1 through stage 4 chronic kidney disease, or unspecified chronic kidney disease; N18.9 Chronic kidney disease, unspecified; Z79.82 Long term (current) use of aspirin; Z79.84 Long term (current) use of oral hypoglycemic drugs
CPT/HCPCS: 28285 ×4; 28292; 36415 ×2; 71046; 73620; 80048; 82948; 85025; 93005; C1713; J0690; J0720; J1100; J1885; J2001 ×2; J2250; J2405; J2704; J3010